=== PATIENT | male | born 1960 | race Two or more races ===

== ENCOUNTER 2019-05-05 05:14 | Day surgery (SDC) | payer OTHER ==
[2019-05-05] MEDS ORDERED: PERCOCET 5-3251 EACH PO (08:18)
== END 2019-05-05 11:56 | disposition home or self-care (01) ==
LOC: CIR.AMB 05:14
DX: C20 Malignant neoplasm of rectum (principal)
CPT/HCPCS: 36561; C1751

== ENCOUNTER 2019-09-25 07:25 | Day surgery (SDC) | payer OTHER ==
[~2019-09-25 07:25] MED LIST: PERCOCET 5-3251 EACH PO
== END 2019-09-25 12:15 | disposition home or self-care (01) ==
LOC: AMB-ENDOS 07:25
DX: K62.89 Other specified diseases of anus and rectum (principal)

== ENCOUNTER 2019-10-02 15:48 | Inpatient (IN) | payer OTHER ==
[~2019-10-02] VITALS: Ht 180.3 cm; Wt 86.6 kg
[~2019-10-02 15:48] MED LIST changes: -GLIMEPIRIDE4 MG PO
[2019-10-06] MEDS ORDERED: GLIMEPIRIDE4 MG PO (10:50)
[2019-10-23] MEDS ORDERED: PRILOSEC OTC20 MG PO (13:07)
== END 2019-10-23 17:26 | disposition home or self-care (01) | DRG 330 ==
LOC: SURG 10-10 06:34 → O/R 10-10 06:34 → SURG 10-10 09:00
PROVIDERS: ADMIT Surgery
PROC: 0DTP4ZZ Resection of Rectum, Percutaneous Endoscopic Approach (ICD-10-PCS; 2019-10-10)
PROC: 07TC4ZZ Resection of Pelvis Lymphatic, Percutaneous Endoscopic Approach (ICD-10-PCS; 2019-10-10)
PROC: 0DJD8ZZ Inspection of Lower Intestinal Tract, Via Natural or Artificial Opening Endoscopic (ICD-10-PCS; 2019-10-10)
PROC: 0D1B4Z4 Bypass Ileum to Cutaneous, Percutaneous Endoscopic Approach (ICD-10-PCS; principal; 2019-10-10 14:00)
PROC: 05HB33Z Insertion of Infusion Device into Right Basilic Vein, Percutaneous Approach (ICD-10-PCS; 2019-10-17)
PROC: 3E0336Z Introduction of Nutritional Substance into Peripheral Vein, Percutaneous Approach (ICD-10-PCS; 2019-10-17)
PROC: BW21Y0Z Computerized Tomography (CT Scan) of Abdomen and Pelvis using Other Contrast, Unenhanced and Enhanced (ICD-10-PCS; 2019-10-18)
DX: C20 Malignant neoplasm of rectum (principal); J91.8 Pleural effusion in other conditions classified elsewhere; K91.89 Other postprocedural complications and disorders of digestive system; K56.0 Paralytic ileus; D36.0 Benign neoplasm of lymph nodes; E11.42 Type 2 diabetes mellitus with diabetic polyneuropathy

== ENCOUNTER → 2019-10-02 | Outpatient (CLI) | payer OTHER ==
[~2019-10-02] MED LIST changes: +GLIMEPIRIDE4 MG PO
== END | disposition home or self-care (01) ==
LOC: RAD 16:01
DX: C20 Malignant neoplasm of rectum (principal); R59.0 Localized enlarged lymph nodes; K62.5 Hemorrhage of anus and rectum

== ENCOUNTER 2020-01-26 16:24 | Emergency (ER) | payer OTHER ==
[~2020-01-26] VITALS: Ht 180.3 cm; Wt 81.6 kg
[~2020-01-26 16:24] MED LIST changes: +GLIMEPIRIDE4 MG PO; +PRILOSEC OTC20 MG PO
[2020-01-26] MEDS ORDERED: ZOFRAN8 MG (16:38)
[2020-01-26] MEDS ORDERED: DICY20TA (16:38)
[2020-01-26] MEDS ORDERED: PROTONIX20 MG (16:39)
== END 2020-01-26 23:32 | disposition home or self-care (01) ==
LOC: ER 16:24
DX: R10.12 Left upper quadrant pain (principal)

== ENCOUNTER 2020-04-10 14:55 | Inpatient (IN) | payer OTHER ==
[~2020-04-10] VITALS: Ht 180.3 cm; Wt 79.8 kg
[~2020-04-10 14:55] MED LIST changes: +DICY20TA; +PROTONIX20 MG; +ZOFRAN8 MG
[2020-04-23] MEDS ORDERED: STELARA90 MG/1 ML (12:21)
[2020-04-23] MEDS ORDERED: TOUJEO SOL300 UNIT/1 (12:22)
[2020-05-03] MEDS ORDERED: PERCOCET 5-3251 EACH PO (09:12)
[2020-05-03] MEDS ORDERED: INTESTINEX680 M1 PO (09:12)
[2020-05-03] MEDS ORDERED: PRILOSEC OTC20 MG PO (09:12)
== END 2020-05-03 10:16 | disposition home or self-care (01) | DRG 348 ==
LOC: EDSTATUS 04-23 09:15 → ADM 04-23 09:15 → O/R 04-30 05:52 → SURG 04-30 05:52 → SURH 04-30 07:00 → SURG 04-30 13:08
PROVIDERS: ADMIT Surgery; ATTEND Surgery
PROC: 0DBB4ZZ Excision of Ileum, Percutaneous Endoscopic Approach (ICD-10-PCS; principal; 2020-04-30 07:00)
DX: Z43.2 Encounter for attention to ileostomy (principal); K56.7 Ileus, unspecified; Z85.048 Personal history of other malignant neoplasm of rectum, rectosigmoid junction, and anus

== ENCOUNTER 2020-04-29 08:29 | Day surgery (SDC) | payer OTHER ==
[~2020-04-29 08:29] MED LIST changes: +STELARA90 MG/1 ML; +TOUJEO SOL300 UNIT/1
== END 2020-04-29 15:05 | disposition home or self-care (01) ==
LOC: AMB-ENDOS 08:29
PROVIDERS: ATTEND Surgery
DX: K62.89 Other specified diseases of anus and rectum (principal)

== ENCOUNTER 2020-10-18 05:57 | Day surgery (SDC) | payer OTHER ==
[~2020-10-18 05:57] MED LIST changes: +GLIMEPIRIDE4 MG; +INTESTINEX680 M1 PO; +STEGLATRO15 MG PO
[2020-10-18] MEDS ORDERED: PERCOCET 5-3251 EACH PO (09:01)
== END 2020-10-18 12:15 | disposition home or self-care (01) ==
LOC: CIR.AMB 05:57
PROVIDERS: ATTEND Surgery
DX: C20 Malignant neoplasm of rectum (principal); Z20.822 Contact with and (suspected) exposure to COVID-19

== ENCOUNTER 2021-06-23 06:54 | Day surgery (SDC) | payer OTHER | END 2021-06-23 10:20 | disposition home or self-care (01) | LOC: AMB-ENDOS 06:54 | PROVIDERS: ATTEND Surgery | DX: K62.89 Other specified diseases of anus and rectum (principal) ==